=== PATIENT | female | born 1955 | race Two or more races ===

== ENCOUNTER → 2018-09-13 09:57 | Outpatient (CLI) | payer BC, SELFPAY ==
--- NOTE | 2018-09-13 10:01 | MM_ITS ---
MM Dig screening mamm BI w/CAD CAD Screening COMPARISON: Digital mammograms with CAD 09/06/2017 and 08/31/2016 INDICATION: There is no personal or family history of breast cancer TECHNIQUE: Standard CC and MLO images were obtained. R2 CAD reviewed. FINDINGS: There is a diffusely dense and heterogenic parenchymal pattern lessening the sensitivity mammography. There are scattered benign-appearing micro and macro calcifications in each breast. There is no new or suspicious lesion in either breast and no suspicious microcalcifications. IMPRESSION: Stable exam with no suspicious lesion seen BI-RADS Category: 2 Benign Finding(s) RECOMMENDED FOLLOW-UP: 1YR - 1 YEAR FOLLOW-UP (A letter has been sent to the patient regarding results of the study.)
== END ==
PROVIDERS: PCP Family Medicine; Visit Provider Family Medicine
DX: Z12.31 Encounter for screening mammogram for malignant neoplasm of breast (principal)
CPT/HCPCS: 77067

== ENCOUNTER → 2019-09-16 12:21 | Outpatient (CLI) | payer BC, SELFPAY | PROVIDERS: Visit Provider Family Medicine | DX: N39.0 Urinary tract infection, site not specified (principal) | CPT/HCPCS: 87086; 87088; 87186 ==

== ENCOUNTER → 2019-09-22 10:37 | Outpatient (CLI) | payer BC, SELFPAY ==
--- NOTE | 2019-09-22 10:40 | MM_ITS ---
PROCEDURE: MM DIG SCREENING MAMM BI W/CAD CLINICAL INDICATION: screening There is no personal or family history of breast cancer COMPARISON: [facility] DIG MAMM-SCREEN [facility]DEE from 08/26/2015 [facility] DIG MAMM-SCREEN [facility]E from 08/31/2016 [facility] DIG MAMM-SCREEN [facility]E W/CAD from 09/06/2017 [facility] MM Dig screening mamm BI w/CAD from 09/13/2018 TECHNIQUE: Standard CC and MLO images were obtained. R2 CAD reviewed. FINDINGS: Prominent heterogenic fibroglandular densities are seen in the central portions of both breasts. Again noted are the 2 large benign-appearing macrocalcifications left breast. There is stable collection of micro calcifications upper outer quadrant right breast. And stable density with associated microcalcifications inner quadrant left breast. There is no suspicious lesion and no suspicious microcalcifications. IMPRESSION: Stable exam with no suspicious lesions seen BI-RAD Category: 2 Benign Finding(s) FOLLOW-UP: 1YR 1 Year Follow-up (A letter has been sent to the patient regarding results of the study.) Dictated by: Dr. Jairo Bowman MD 09/26/2019 15:[address] Jairo Bowman MD in [place] 09/26/2019 15:45
== END ==
PROVIDERS: PCP Family Medicine; Visit Provider Family Medicine
DX: Z12.31 Encounter for screening mammogram for malignant neoplasm of breast (principal)
CPT/HCPCS: 77067

== ENCOUNTER → 2020-10-30 17:41 | Outpatient (CLI) | payer BC, SELFPAY ==
--- NOTE | 2020-10-30 | XR_ITS ---
PROCEDURE: XR KUB CLINICAL INDICATION: COMPARISON: No exams were available for comparison FINDINGS: Gas pattern-The bowel gas pattern is unremarkable. No obvious obstruction. Calcifications-No abnormal calcifications are evident. No obvious renal or ureteral calculi. Bones-No acute bony anomalies evident. No significant amount of colonic feces apparent. There is a minimal amount fecal a material noted in the right colon. Minimal lumbar curvature convex right IMPRESSION: No acute findings. Dictated by: Elvis Mendoza MD 10/31/2020 05:59 Elvis Mendoza MD in [place] 10/31/2020 05:59
== END ==
PROVIDERS: PCP Family Medicine; Visit Provider Family Medicine
DX: K59.01 Slow transit constipation (principal)
CPT/HCPCS: 74018

== ENCOUNTER → 2020-11-04 08:05 | Outpatient (CLI) | payer BC, SELFPAY ==
--- NOTE | 2020-11-04 08:13 | MM_ITS ---
PROCEDURE: MM DIG SCREENING MAMM BI W/CAD Digital Breast Tomosynthesis Included CLINICAL INDICATION: SCREENING There is no personal or family history of breast cancer. COMPARISON: MG [facility] DIG MAMM-SCREEN BRANDEE W/CAD from 09/06/2017 [facility] MM Dig screening mamm BI w/CAD from 09/13/2018 MG MM DIG SCREENING MAMM BI W/CAD from 09/22/2019 TECHNIQUE: Standard CC and MLO images and 3D Tomosynthesis was obtained. R2 CAD reviewed. FINDINGS: Prominent diffuse heterogenic fibroglandular densities are seen throughout both breast as noted previously. Findings are bilateral and symmetrical. The large benign-appearing macrocalcifications left breast and there are few scattered benign-appearing microcalcifications in each breast. There is no suspicious lesion and no suspicious microcalcifications. IMPRESSION: Stable dense and heterogenic parenchymal pattern with no suspicious lesions seen BI-RAD Category: 2 Benign Finding(s) FOLLOW-UP: 1YR 1 Year Follow-up (A letter has been sent to the patient regarding results of the study.) Dictated by: Dr. Jairo Bowman MD 11/06/2020 09:55 Dr. Jairo Bowman MD in [place] 11/06/2020 09:55
== END ==
PROVIDERS: PCP Family Medicine; Visit Provider Nurse Practitioner
DX: Z12.31 Encounter for screening mammogram for malignant neoplasm of breast (principal)
CPT/HCPCS: 77063; 77067

== ENCOUNTER → 2020-12-07 09:44 | Outpatient (CLI) | payer BC, SELFPAY ==
[2020-12-07 12:32] LABS: Coronavirus 19 IgG Antibody Negative (Negative); Coronavirus 19 IgM Antibody Negative (Negative)
== END ==
PROVIDERS: Visit Provider Internal Medicine Gastroenterology
DX: Z01.812 Encounter for preprocedural laboratory examination (principal); Z20.822 Contact with and (suspected) exposure to COVID-19; Z12.11 Encounter for screening for malignant neoplasm of colon; K59.00 Constipation, unspecified
CPT/HCPCS: 36415; 86328

== ENCOUNTER 2020-12-09 07:54 | Day surgery (SDC) | payer BC, SELFPAY ==
[2020-12-03 13:14] VITALS: BMI 25.0
[2020-12-09] VITALS (7 sets, daily range): BP systolic 76–140; BP diastolic 54–88; PULSE 60–83; RESP 16–18; TEMP 36.3–36.4; O2SAT 93–100
--- NOTE | 2020-12-09 08:36 | HMH.PROC ---
[facility] Procedure Note Procedure Note:: Colonoscopy Procedure Report: Colonoscopy with cold snare polypectomy Endoscopist: Jose Carlos Szymanski II, MD Referring physician: Rob Brumfield MD Date of Procedure: December 09, 2020 Equipment: Olympus 180 variable stiffness pediatric colonoscope Sedation: MAC sedation Indication: Mrs. Whipple is a 65-year-old female who is here for follow-up screening/surveillance colonoscopy secondary to a personal history of colon polyps. She did have 2 colon polyps (tubular adenoma x1/hyperplastic polyp x1) removed in July 2014 (Dr. Tony Knott M.D.). She does have some chronic constipation. She reports no abdominal pain, weight loss, change in her bowel habits or rectal bleeding. She reports no family history of colon cancer. She does have a prior history of hepatitis C that was treated successfully. Procedure: Prior to the procedure, a history and physical exam was performed, and patient's medications and allergies were reviewed. The risks, benefits and alternatives of the sedation and procedure were discussed with the patient. All questions were answered and informed consent was obtained. The patient was brought to the procedure room. Patient identification and proposed procedure were verified by the physician and the nurse. The patient was placed in a left lateral decubitus position and the scope was passed under direct vision. Throughout the procedure, the patient's blood pressure, pulse, and oxygen saturations were monitored continuously. The colonoscopy was accomplished without difficulty. The patient tolerated the procedure well. Findings: On digital rectal examination there was normal rectal tone. There were no external hemorrhoids. The colonoscope was introduced through the anal canal to the rectum and advanced to the cecum. The ileocecal valve and appendiceal orifice were identified. The scope was advanced a short distance into the ileum which appeared grossly normal. The scope was then withdrawn into the colon. There was a diminutive 3 mm polyp in the cecum removed via cold snare polypectomy. The remaining cecum, ascending, transverse, descending, sigmoid and rectum were grossly normal. There were no mucosal abnormalities identified. Upon retroflexion within the rectum there were grade 1 internal hemorrhoids.The preparation was excellent throughout with [place] Preparation Score of 9. The cecal time was 12 minutes. Impression: 1. Diminutive cecal polyp 2. Grade 1 internal hemorrhoids Plan: I will follow up the polyp pathology and recommend repeat colonoscopy again in 7-10 years based upon the polyp histology. I would encourage a fiber bowel regimen on a long-term daily maintenance basis.
--- NOTE | 2020-12-09 08:54 | P.PN_ITS ---
[facility] Anesthesia Checklist - Patient Identification Patient Identification: Arm Band - Structural Data Admitted From: Home Planned Operative Procedure/s: colonoscopy Consent for Planned Operative Procedure(s) Verified: Yes Verified Documents: Surgical Consent, History and Physical - NPO Status Verified Time NPO: 00:00 - Additional verifications Anesthesia Reactions: No - Airway Assessment C-Spine Mobility Assessed: Yes (mp2) TMJ Mobility Assessed: Yes Dentition: Good Dentition - Neurological Assessment Level of Consciousness: Awake, Alert - Anesthesia Plan Anesthesia Risk discussed: Yes Anesthesia Plan: Verified ASA Class: II Anesthesia Type: MAC [facility] History I have reviewed the patient's past medical history: Yes Medical History: Reports:: Asthma, Hyperlipidemia, Hypertension Denies:: Cancer, Diabetes Mellitus Type 1, Diabetes Mellitus Type 2, Internal Pacemaker, MRSA, Seizures *Have you ever received a pneumonia vaccine?: Yes *Have you received a flu vaccine this season?: Yes Anesthesia experience/problems:: nac Other Surgeries: Yes: Colonoscopy, Hysterectomy-Total. No: Pacemaker Amputation: No Fractures: No - *Social History Last grade of school completed: Some college Smoking Status: Never smoker Alcohol Intake: never Substance Use Type: denies use *Occupational Status:: retired Housing: house Household Members: spouse *Travel in the last 8 weeks: None Family Hx:: No significant family history
== END 2020-12-09 09:54 | disposition home or self-care (01) ==
LOC: OUTP 07:55
PROVIDERS: PCP Family Medicine; Visit Provider Internal Medicine Gastroenterology
PROC: 0DJD8ZZ Inspection of Lower Intestinal Tract, Via Natural or Artificial Opening Endoscopic (ICD-10-PCS; CPT 45378; principal; 2020-12-09 09:00)
DX: Z12.11 Encounter for screening for malignant neoplasm of colon (principal); Z86.010 Personal history of colon polyps; K63.5 Polyp of colon; K64.0 First degree hemorrhoids; J45.909 Unspecified asthma, uncomplicated; I10 Essential (primary) hypertension; E78.5 Hyperlipidemia, unspecified; B19.20 Unspecified viral hepatitis C without hepatic coma; Z79.890 Hormone replacement therapy; Z79.51 Long term (current) use of inhaled steroids; Z79.899 Other long term (current) drug therapy
CPT/HCPCS: 45385

== ENCOUNTER → 2022-11-27 10:01 | Outpatient (CLI) | payer BC, MEDICARE, SELFPAY ==
--- NOTE | 2022-11-27 10:10 | MM_ITS ---
PROCEDURE INFORMATION: Exam: MG Bilateral Screening 3D Mammography Exam date and time: 11/27/2022 10:16 AM Age: 67 years old Clinical indication: Screening examination TECHNIQUE: Imaging protocol: Bilateral Screening tomosynthesis and 2D mammography including computer-aided detection (CAD) when performed. COMPARISON: 1. MG MM DIG SCREENING MAMM BI W/CAD 11/04/2020 8:12 AM 2. MG MM DIG SCREENING MAMM BI W/CAD 09/22/2019 10:50 AM FINDINGS: MAMMOGRAPHY: Breast composition: The breasts are heterogeneously dense, which may obscure small masses. Mass: None. Architectural distortion: None. Calcifications: No suspicious calcifications. Asymmetric density: None. Skin thickening: None. Axillary adenopathy: None. IMPRESSION: No mammographic evidence of malignancy. Annual screening is recommended unless otherwise clinically indicated. ASSESSMENT: BI-RADS Category 1: Negative
== END ==
PROVIDERS: PCP Family Medicine; Visit Provider Family Medicine
DX: Z12.31 Encounter for screening mammogram for malignant neoplasm of breast (principal)
CPT/HCPCS: 77063; 77067

== ENCOUNTER → 2022-12-22 08:59 | Outpatient (CLI) | payer BC, MEDICARE, SELFPAY ==
--- NOTE | 2022-12-22 09:09 | XR_ITS ---
FINAL REPORT TECHNIQUE: Bone densitometry calculations of the lumbar spine and left hip were obtained. CLINICAL HISTORY: osteoporosis FINDINGS: DEXA BONE DENSITY AXIAL SKELETON Using L1-4, the bone mineral density of the spine is 0.931 g/cm2, corresponding to T-score of -1.1. Using the left hip, the bone mineral density of the total hip is 0.875 g/cm2, corresponding to a T-score of -0.5. NOTE: T-score: Standard deviation compared with peak bone mass of young adult mean. *Following the recommendations of the International Society of Bone densitometry, classification of hip BMD is based on the lower of two T-scores; total hip or femoral neck. IMPRESSION: Diminished bone mineral density of the lumbar spine and left hip consistent with osteopenia. FRAX 10 year fracture risk is 0.2% for a hip fracture and 6.8% for a major osteoporotic fracture. Reviewed, Interpreted and Dictated by Conrad Mcduffie III, MD Transcribed by Cally Nation Authenticated and [facility][1]
== END ==
PROVIDERS: PCP Family Medicine; Visit Provider Physician Assistant
DX: Z78.0 Asymptomatic menopausal state (principal)
CPT/HCPCS: 77080

== ENCOUNTER → 2023-06-25 08:00 | Outpatient (CLI) | payer BC, MEDICARE, SELFPAY ==
--- NOTE | 2023-06-25 08:00 | FL_ITS ---
FINAL REPORT CLINICAL HISTORY: difficulty swallowing DAP 499.60 Fluoro time 0.47 FINDINGS: BARIUM SWALLOW HISTORY: Dysphagia, feels like food getting stuck in throat, difficulty swallowing. TECHNIQUE: The patient ingested barium contrast. Spot and overhead films were performed. A total of 21 images were saved. FINDINGS: The esophagus is unremarkable. There is no gastroesophageal reflux demonstrated. No mucosal defects are seen. Motility appears normal. No changes of esophagitis are evident. 13 mm barium tablet passes easily through the esoophagus and into the stomach. FLUOROSCOPY TIME: 0.47 minutes Fluoro dose: 499.60 DAP in [employer] IMPRESSION: Unremarkable esophagram. Reviewed, Interpreted and Dictated by Conrad Mcduffie III, MD Transcribed by Gaby Del Real PA-C Authenticated and [facility]
== END ==
PROVIDERS: PCP Family Medicine; Visit Provider Nurse Practitioner
DX: R13.10 Dysphagia, unspecified (principal)
CPT/HCPCS: 74220

== ENCOUNTER → 2023-07-01 08:45 | Outpatient (POV) | payer BC, MEDICARE, SELFPAY | PROVIDERS: Visit Provider Specialist/Technologist | DX: Z00.00 Encounter for general adult medical examination without abnormal findings (principal) ==